=== PATIENT | male | born 1970 | race Hispanic/Latino ===

== ENCOUNTER 2017-05-18 12:09 | Emergency (ER) | payer MEDICARE ==
--- NOTE | 2017-05-18 12:38 | ED.PDOC ---
History of Present Illness - General Chief Complaint: Upper Extremity Injury Time Seen by Provider: 05/18/17 12:27 Source: patient Exam Limitations: no limitations - History of Present Illness Initial Comments: Patient presents with left wrist, arm, and elbow pain for one month. He was lifting a heavy object and he felt a pop in his wrist. The pain has been constant but intermittent in intensity. Located in the left wrist with radation to the left elbow. Worse with movement, better with rest. Cramping in nature. No previous injuries to the area. Patient has been treated for Myasthenia Gravis for the last 16 years. No other complaints. Timing/Duration: other - one month Severity: moderate Improving Factors: rest Worsening Factors: movement Associated Symptoms: denies symptoms Allergies/Adverse Reactions: Allergies NO KNOWN ALLERGY Allergy (Verified 05/18/17 12:39) Home Medications: Ambulatory Orders Ciprofloxacin [Cipro] 500 mg PO BID #20 tab 12/29/14 Naproxen [EC-Naprosyn] 500 mg PO BID PRN #20 tab 12/29/14 Tramadol HCl 50 mg PO Q6HR PRN #15 tab 12/29/14 Ketorolac Tromethamine [Toradol Tabs] 10 mg PO Q6HR PRN #14 tab 05/18/17 Review of Systems - Review of Systems Constitutional: States: no symptoms reported EENTM: States: no symptoms reported Respiratory: States: no symptoms reported Cardiology: States: no symptoms reported Gastrointestinal/Abdominal: States: no symptoms reported Genitourinary: States: no symptoms reported Musculoskeletal: States: see HPI Skin: States: no symptoms reported Neurological: States: no symptoms reported Endocrine: States: no symptoms reported Past Medical History (General) - Patient Medical History Hx Seizures: No Hx Stroke: No Hx Dementia: No Hx Asthma: No Hx of COPD: No Hx Cardiac Disorders: No Hx Congestive Heart Failure: No Hx Pacemaker: No Hx Hypertension: Yes Hx Thyroid Disease: No Hx Diabetes: No Hx Gastroesophageal Reflux: Yes Hx Renal Disease: No Hx Cancer: No Hx of HIV: No Hx Hepatitis C: No Hx MRSA: No - Vaccination History Hx Influenza Vaccination: No - Social History Hx Tobacco Use: No Hx Alcohol Use: No Hx Substance Use: No Hx Substance Use Treatment: No Hx Depression: No Family Medical History - Family History Mother Family History: No Known Father Family History: Unknown Physical Exam - Physical Exam General Appearance: Alert Respiratory: lungs clear Cardiovascular/Chest: normal peripheral pulses, regular rate, rhythm Gastrointestinal/Abdominal: normal bowel sounds, non tender, soft Extremity: other - Pain with flexion and extenstion of the left wrist both AROM and PROM. Pain with AROM and PROM of the left elbow. 5/5 strength in both joints through all ROM. Progress - Progress Progress: 05/18/17 15:11 Radiographs of the left elbow, forearm, and wrist showed no fractures. Patient received toradol 30 mg IM x one, wrist splint, and arm sling. Departure - Departure Clinical Impression: Strain of elbow and forearm, Left wrist sprain Disposition: Discharge to Home or Self Care Departure Forms: ED Discharge - Pt. Copy, Patient Portal Self Enrollment Instructions: DI for Arm Pain Diet: resume usual diet Activity: increase activity as tolerated Referrals: Parker Molina MD [Primary Care Provider] - 1-2 Weeks Prescriptions: Ketorolac Tromethamine [Toradol Tabs] 10 mg PO Q6HR PRN #14 tab PRN Reason: Pain Home Medications: Ambulatory Orders Ciprofloxacin [Cipro] 500 mg PO BID #20 tab 12/29/14 Naproxen [EC-Naprosyn] 500 mg PO BID PRN #20 tab 12/29/14 Tramadol HCl 50 mg PO Q6HR PRN #15 tab 12/29/14 Ketorolac Tromethamine [Toradol Tabs] 10 mg PO Q6HR PRN #14 tab 05/18/17 Additional Instructions: Follow up with Dr. Nolasco for further evaluation.
[2017-05-18] MEDS ORDERED: KETOROLAC TROMETHAMINE INJ 30 MG/ML VIAL IM ONE (13:02)
--- NOTE | 2017-05-18 13:11 | RAD ---
Three-view left elbow. Two-view left forearm. Three-view left wrist. Indication: pain in joint Comparison: None. IMPRESSION: Soft tissue swelling posterior elbow noted. Large elbow effusion. No well-defined fracture plane identified, however given the effusion, occult fracture is difficult to exclude. Further characterization with MRI versus repeat radiographs in one week recommended. No acute fracture of the forearm or wrist identified. Minimal enthesophyte formation triceps tendon insertion. 4 m negative ulnar variance. If there is persistent anatomic snuffbox tenderness, repeat wrist imaging to include a scaphoid view is recommended in one week to evaluate for occult scaphoid fracture. Electronically signed by: Sergey Snyder MD 05/18/2017 1:10 PM CDT
[2017-05-18 15:04] VITALS: TEMP 98
[2017-05-18 15:28] VITALS: BP 145/94; O2SAT 96
== END 2017-05-18 15:29 | disposition home or self-care (01) ==
LOC: ER 12:09
DX: S46.812A Strain of other muscles, fascia and tendons at shoulder and upper arm level, left arm, initial encounter (principal); S63.502A Unspecified sprain of left wrist, initial encounter; I10 Essential (primary) hypertension; K21.9 Gastro-esophageal reflux disease without esophagitis; X50.0XXA Overexertion from strenuous movement or load, initial encounter; Y92.9 Unspecified place or not applicable
CPT/HCPCS: 36415; 73080; 73090; 73110; 80048; 84550; J1885

== ENCOUNTER → 2017-07-11 | Outpatient (CLI) | payer MEDICARE ==
--- NOTE | 2017-07-13 03:46 | RAD ---
Examination: XR SHOULDER 2 OR MORE VIEWS dated 07/11/2017 12:00 AM [employer] HELIC[employer]TER PILOT History: PAIN Comparison: None Technique: Four views of the left shoulder FINDINGS AND IMPRESSION: There is no acute fracture or dislocation of the left shoulder. Unremarkable glenohumeral and acromioclavicular joints. Electronically signed by: Steve Romano MD 07/13/2017 3:45 AM [employer]
--- NOTE | 2017-07-13 21:20 | RAD ---
Examination: XR ELBOW 3 VIEWS dated 07/11/2017 12:00 AM MANAGER FLEET History: PAIN Comparison: 05/18/2017 Technique: Three views of the left elbow FINDINGS AND IMPRESSION: No acute fracture or dislocation. There is mild displacement of the anterior fat pad suggesting a small joint effusion. Effusion appears decreased as compared to the prior exam. Soft tissue prominence adjacent to the olecranon, raising suspicion for olecranon bursitis. Electronically signed by: Steve Romano MD 07/13/2017 9:19 PM MANAGER FLEET
--- NOTE | 2017-07-13 21:21 | RAD ---
Examination: XR FOREARM 2 VIEWS dated 07/11/2017 12:00 AM HOUSE WRECKER History: PAIN Comparison: None Technique: Two views of the left forearm FINDINGS AND IMPRESSION: There is mild negative ulnar variance. No acute fracture or dislocation of the left radius or ulna. Normal mineralization and alignment. Electronically signed by: Steve Romano MD 07/13/2017 9:20 PM HOUSE WRECKER
--- NOTE | 2017-07-13 21:23 | RAD ---
Examination: XR HAND 3 OR MORE VIEWS dated 07/11/2017 12:00 AM DIRECTOR OF COLLECTIONS AND ARCHIVES History: PAIN Comparison: None Technique: Three views of the left hand FINDINGS AND IMPRESSION: There is no acute fracture or dislocation of the left hand. No significant degenerative changes. Anatomic alignment. Electronically signed by: Steve Romano MD 07/13/2017 9:22 PM DIRECTOR OF COLLECTIONS AND ARCHIVES
--- NOTE | 2017-07-13 21:24 | RAD ---
Examination: XR WRIST 3 OR MORE VIEWS dated 07/11/2017 12:00 AM SHOP LEAD History: PAIN Comparison: 05/18/2017 Technique: Three of the left wrist FINDINGS AND IMPRESSION: No acute fracture or dislocation. Anatomic alignment. Mild negative ulnar variance. Mild degenerative changes of the STT joint. Electronically signed by: Steve Romano MD 07/13/2017 9:23 PM SHOP LEAD
--- NOTE | 2017-07-13 21:25 | RAD ---
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 Normal mineralization. Electronically signed by: Steve Romano MD 07/13/2017 9:24 PM GEAR GENERATOR SET UP OPERATOR
--- NOTE | 2017-07-15 13:46 | RAD ---
EXAM DESCRIPTION: Bilateral Ribs CLINICAL HISTORY: PAIN COMPARISON: None available FINDINGS: There are several old healed right-sided rib fractures. There are minimally displaced fracture involving the right seventh and eighth ribs anteriorly. No left-sided rib fracture is identified. IMPRESSION: Nondisplaced right seventh and eighth rib fractures anteriorly, possibly acute. No segmental rib fracture or pneumothorax. Electronically signed by: Bret Comer MD 07/15/2017 1:45 PM [facility]
== END | disposition home or self-care (01) ==
LOC: RAD 08:34
PROVIDERS: ATTEND Orthopaedic Surgery
DX: M79.642 Pain in left hand (principal); M25.532 Pain in left wrist; M79.632 Pain in left forearm; M25.552 Pain in left hip; M79.602 Pain in left arm

== ENCOUNTER → 2017-07-30 | Outpatient (CLI) | payer MEDICARE ==
--- NOTE | 2017-08-01 08:16 | MRI ---
EXAM DESCRIPTION: MRI left wrist CLINICAL HISTORY: Lifting injury. Anterior wrist pain. Sprain COMPARISON: None. TECHNIQUE: Multiplanar, multisequence MR images of the left wrist FINDINGS: Full-thickness chondrosis proximal hamate at the articulation with the lunate. Full-thickness chondrosis with underlying cortical defect and marrow edema in the hamate. The articular abnormality is about 2 to 3 mm and edema over about 5 mm. Midcarpal chondral thinning and joint space narrowing between the capitate and the proximal carpal row without a focal osteochondral lesion. There is marrow edema in the volar ulnar side of the capitate from full-thickness chondrosis at the articulation with the hamate Joint space narrowing STT with small marginal osteophytes. No marrow edema Joint space narrowing radius scaphoid. Marrow edema along the volar lip of the radius at the articulation with the proximal pole scaphoid. No marrow edema in the scaphoid Full-thickness chondral loss along the mid dorsal lunate fossa with underlying edema in the lunate. Joint space narrowing and subchondral sclerosis with minimal edema seen over small region of the lunate Negative ulnar variance. There is high signal at the radial attachment of the TFC but the TFC otherwise appears intact. No full-thickness chondrosis of the distal ulna No focal osteochondral lesion carpometacarpal. 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 The most significant involvement is mid carpus involving the hamate and capitate. Full-thickness chondrosis also present along the lunate fossa with edema in the radius Electronically signed by: Luis Powell MD 08/01/2017 8:15 AM [facility]
== END ==
LOC: MRI 11:04
PROVIDERS: ATTEND Orthopaedic Surgery
DX: S63.502A Unspecified sprain of left wrist, initial encounter (principal); Z79.891 Long term (current) use of opiate analgesic; M94.8X3 Other specified disorders of cartilage, forearm

== ENCOUNTER → 2017-12-26 | Outpatient (CLI) | payer MEDICARE ==
--- NOTE | 2017-12-26 12:32 | CT ---
EXAM DESCRIPTION: Chest w/Contrast CLINICAL HISTORY: MYASTHENIA GRAVIS COMPARISON: None available TECHNIQUE: Chest CT was performed with IV contrast. This exam was performed according to our departmental dose-optimization program, which includes automated exposure control, adjustment of the mA and/or kV according to patient size and/or use of iterative reconstruction technique. FINDINGS: The thyroid and thoracic inlet are unremarkable. No thymoma or other anterior mediastinal mass. No thoracic aortic aneurysm or dissection. The main pulmonary artery is not dilated. No mediastinal or hilar adenopathy. No pleural or pericardial effusion. The central airways are clear. No airspace consolidation or lung mass. Subtle emphysematous changes are noted in the left lung apex. There is a 3 mm noncalcified left upper lobe nodule (series 4 image 49). A 2 mm nodule in the right lung apex appears calcified. Visualized portions of the upper abdomen are unremarkable. There are mild degenerative changes in the thoracic spine at several levels. IMPRESSION: No evidence of thymoma. Subtle emphysematous changes with a 3 mm noncalcified left upper lobe nodule. Per 2017 Fleischner Society recommendations, follow-up chest CT in one year should be considered. Electronically signed by: Bret Comer MD 12/26/2017 12:31 PM CDT
== END ==
LOC: CT 09:17
DX: G70.01 Myasthenia gravis with (acute) exacerbation (principal); R91.1 Solitary pulmonary nodule

== ENCOUNTER → 2018-04-25 | Outpatient (CLI) | payer MEDICARE | LOC: GMAH 13:10 | PROVIDERS: ATTEND Family Medicine | DX: M25.50 Pain in unspecified joint (principal) ==

== ENCOUNTER → 2018-05-10 | Outpatient (CLI) | payer MEDICARE | LOC: GMAH 10:39 | PROVIDERS: ATTEND Family Medicine | DX: M10.9 Gout, unspecified (principal) ==

== ENCOUNTER → 2018-10-31 | Outpatient (CLI) | payer MEDICARE | LOC: GMAH 10:58 | PROVIDERS: ATTEND Family Medicine | DX: E55.9 Vitamin D deficiency, unspecified (principal) ==